=== PATIENT | male | born 1980 | race American Indian/Alaskan Native ===

== ENCOUNTER 2020-10-27 01:56 | Observation (INO) | payer OTHER ==
[2020-10-27] MEDS ORDERED: ASPIRIN 81 MG TAB CHEW PO ONE (02:10)
[2020-10-27] MEDS ORDERED: KETOROLAC 30 MG/1 ML INJ IV ONE (02:11)
[2020-10-27] MEDS ORDERED: methylPREDNISolone Sod Succinate 125 MG/2 ML INJ IV ONE (02:12)
--- NOTE | 2020-10-27 02:13 | Emergency Department Report ---
ED Chest Pain HPI - General Chief Complaint: Chest Pain Stated Complaint: SIVA PUI?: Yes Time Seen by Provider: 10/27/20 02:07 Source: patient Mode of arrival: Ambulatory Limitations: No Limitations - History of Present Illness MD Complaint: chest pain -: Sudden, days(s) Onset: during rest Pain Location: left chest, right chest Pain Radiation: none Severity: severe Severity scale (0 -10): 10 Quality: sharp Consistency: constant Improves With: rest Worsens With: inspiration, palpation, movement re: dyspnea. denies: nausea, vomting, diaphoresis Other Symptoms: fever. denies: cough, syncope, rash, acid taste in mouth, leg swelling, palpitations, burping Treatments Prior to Arrival: none Aspirin use within the Past 7 Days: (0) No - Related Data On Oral Contraceptives: No ED Review of Systems ROS: Stated complaint: SIVA Other details as noted in HPI Critical care attestation.: If time is entered above; I have spent that time in minutes in the direct care of this critically ill patient, excluding procedure time. ED Disposition Condition: Stable
--- NOTE | 2020-10-27 02:27 | Emergency Department Report ---
ED Shortness of Breath HPI - General Chief Complaint: Chest Pain Stated Complaint: SIVA Time Seen by Provider: 10/27/20 02:07 Source: EMS Mode of arrival: Stretcher Limitations: No Limitations - History of Present Illness Initial Comments: Patient is a 40-year-old male who presents with EMS for shortness of breath. Patient states that he was outside with some friends and had some alcohol and began having shortness of breath. He states he has asthma. Patient friends called EMS. EMS brought patient to hospital. Report received from EMS. EMS states the patient was short of breath and hypoxic and they gave him albuterol, Solu-Medrol and mag. Patient sats improved. Patient answering some questions. Patient states he is feeling better. Patient is lethargic but arousable. Patient states his shortness of breath was severe. Patient states that is improved with medications. Patient states that he had a seizure. Patient dates he has a history of seizures. Patient states he is not taking any medications. Patient states that after his asthma attack started he then had a seizure. Patient states that he woke up to EMS. Patient states he might of had a possible exposure to COVID-19. Complaint: shortness of breath -: Sudden Severity: severe Consistency: other (Improving) Improves With: rest, bronchodilators Worsens With: exertion Known History Of: asthma Associated Symptoms: denies other symptoms Treatments Prior to Arrival: oxygen, bronchodilator, other - Related Data Home Oxygen Therapy: No Allergies Allergy/AdvReac Type Severity Reaction Status Date / Time No Known Allergies Allergy Unverified 10/27/20 02:55 ED Review of Systems ROS: Stated complaint: SIVA Other details as noted in HPI Constitutional: denies: chills, fever Eyes: denies: eye pain, eye discharge, vision change ENT: denies: ear pain, throat pain Respiratory: shortness of breath, wheezing. denies: cough Cardiovascular: denies: chest pain, palpitations Endocrine: no symptoms reported Gastrointestinal: denies: abdominal pain, nausea, diarrhea Genitourinary: denies: urgency, dysuria Musculoskeletal: denies: back pain, joint swelling, arthralgia Skin: denies: rash, lesions Neurological: denies: headache, weakness, paresthesias Psychiatric: denies: anxiety, depression Hematological/Lymphatic: denies: easy bleeding, easy bruising ED Past Medical Hx - Past Medical History Previous Medical History?: Yes Hx Asthma: Yes - Surgical History Past Surgical History?: No - Family History Family history: no significant - Social History Smoking Status: Unknown if ever smoked Substance Use Type: Alcohol ED Physical Exam - General Limitations: No Limitations General appearance: in no apparent distress, lethargic - Head Head exam: Present: atraumatic, normocephalic - Eye Eye exam: Present: normal appearance, PERRL Pupils: Present: normal accommodation - ENT ENT exam: Present: mucous membranes moist - Neck Neck exam: Present: normal inspection - Respiratory Respiratory exam: Present: normal lung sounds bilaterally. Absent: respiratory distress - Cardiovascular Cardiovascular Exam: Present: regular rate, normal rhythm. Absent: systolic murmur, diastolic murmur, rubs, gallop - GI/Abdominal GI/Abdominal exam: Present: soft, normal bowel sounds - Rectal Rectal exam: Present: deferred - Extremities Exam Extremities exam: Present: normal inspection - Back Exam Back exam: Present: normal inspection - Neurological Exam Neurological exam: Present: alert, oriented X3 - Psychiatric Psychiatric exam: Present: normal affect, normal mood - Skin Skin exam: Present: warm, dry, intact, normal color. Absent: rash ED Course Vital Signs 10/27/20 10/27/20 10/27/20 02:04 02:09 02:15 Pulse Rate 60 63 Respiratory 12 10 L Rate Blood Pressure 93/61 118/89 O2 Sat by Pulse 96 95 99 Oximetry 10/27/20 02:56 Pulse Rate Respiratory 16 Rate Blood Pressure O2 Sat by Pulse Oximetry - Reevaluation(s) Reevaluation #1: Patient oxygen is decreasing. Patient was placed on oxygen. 10/27/20 02:45 Reevaluation #2: Patient removed from oxygen patient continues to desat. Patient well-developed breathing treatments and admitted to the hospital service. Patient placed back on oxygen. Patient answering more questions. I discussed all results with patient. I discussed plan of care with patient. Patient agrees with plan of care and admission. Patient to be admitted to the hospitalist service. 10/27/20 04:45 ED Medical Decision Making - Lab Data Result diagrams: 10/27/20 02:44 10/27/20 02:39 - EKG Data -: EKG Interpreted by Me EKG shows normal: sinus rhythm, axis, intervals, QRS complexes, ST-T waves - Radiology Data Radiology results: report reviewed, image reviewed interpreted by me: Chest x-ray: No pneumonia, no pneumothorax, no foreign body, no osseous findings, no acute findings - Medical Decision Making Patient is a 40-year-old male presents emergency room with complaints of shortness of breath and seizure activity. Patient has history of seizures and has had a seizure for a long time. Patient was brought in by EMS. EMS found patient to be hypoxic and wheezing. Patient was given Solu-Medrol, albuterol and magnesium. Patient was found to be hypoxic in ER and placed on oxygen. Patient continued to require oxygen support. Patient's lethargy improved this time around the ER. Patient given Keppra for his seizure activity. Patient chest x-ray was negative for acute finding. Patient had labs which were essentially unremarkable. Patient admitted to the hospital service for further evaluation treatment. Due to Covid exposure, the patient will have a Covid panel done and infectious disease will be consulted. The hospital service for follow-up on the Covid labs. - Differential Diagnosis Status asthmaticus, seizure, hypoxia, SoB, Critical Care Time: Yes Critical care time in (mins) excluding proc time.: 35 Critical care attestation.: If time is entered above; I have spent that time in minutes in the direct care of this critically ill patient, excluding procedure time. Critical Care Time: 35 minutes ED Disposition Clinical Impression: Seizure, SOB (shortness of breath), Exposure to COVID-19 virus Status asthmaticus Qualifiers: Asthma severity: unspecified severity Asthma persistence: unspecified Qualified Code(s): J45.902 - Unspecified asthma with status asthmaticus Respiratory failure Qualifiers: Chronicity: acute Respiratory failure complication: hypoxia Qualified Code(s): J96.01 - Acute respiratory failure with hypoxia Disposition: OP ADMIT IP TO THIS HOSP Is pt being admited?: Yes Does the pt Need Aspirin: No Condition: Critical Time of Disposition: 04:48
[2020-10-27 02:54] LABS: Basophils % (Auto) 0.4 % (0.0-1.8); Eosinophils # (Auto) 0.5 K/mm3 (0.0-0.4); Eosinophils % (Auto) 5.2 % (0.0-4.3); Hematocrit 42.1 % (35.5-45.6); Hemoglobin 13.9 gm/dl (11.8-15.2); Lymphocytes # (Auto) 2.7 K/mm3 (1.2-5.4); Lymphocytes % (Auto) 26.8 % (13.4-35.0); Mean Corpuscular HGB Conc 33 % (32-34); Mean Corpuscular Volume 91 fl (84-94); Monocytes # (Auto) 0.6 K/mm3 (0.0-0.8); Monocytes % (Auto) 6.6 % (0.0-7.3); Platelet Count 290 K/mm3 (140-440); Red Blood Count 4.64 M/mm3 (3.65-5.03); Red Cell Distribution Width 14.6 % (13.2-15.2)
--- NOTE | 2020-10-27 02:59 | XRay Report ---
CHEST 1 VIEW 10/27/2020 1:47 AM INDICATION / CLINICAL INFORMATION: Chest Pain. COMPARISON: 08/04/20 FINDINGS: SUPPORT DEVICES: None. HEART / MEDIASTINUM: No significant abnormality. LUNGS / PLEURA: No significant pulmonary or pleural abnormality. No pneumothorax. ADDITIONAL FINDINGS: No significant additional findings. IMPRESSION: 1. No acute findings. Signer Name: Júnior Ndiaye MD Signed: 10/27/2020 2:55 AM Workstation Name: [id number]
[2020-10-27 03:16] LABS: Alanine Aminotransferase 9 units/L (7-56); BUN/Creatinine Ratio 13; Blood Urea Nitrogen 13 mg/dL (9-20); Calcium 8.7 mg/dL (8.4-10.2); Hemolysis Index 4
[2020-10-27] MEDS ORDERED: levETIRAcetam 1000 MG/NS 0.75% 1,000 MG/100 ML BAG IV ONE (04:47)
[2020-10-27] MEDS ORDERED: IPRATROPIUM/ALBUTEROL SULFATE 3 ML AMPUL.NEB IH ONE (04:51)
[2020-10-27 05:03] LABS: Amphetamine Screen,Urine PRESUMPTIVE NEGATIVE; Benzodiazepines Screen,Urine PRESUMPTIVE NEGATIVE; Cannabinoid Screen,Urine PRESUMPTIVE NEGATIVE; Cocaine Screen,Urine PRESUMPTIVE POSITIVE; Methadone Screen,Urine PRESUMPTIVE NEGATIVE; Opiate Screen,Urine PRESUMPTIVE NEGATIVE
[2020-10-27 05:17] LABS: Bilirubin,Urine NEG (Negative); Blood,Urine NEG (Negative); Color,Urine Yellow (Yellow); Hyaline Casts,Urine 1 /LPF; Mucus,Urine FEW /HPF; Protein,Urine <15 mg/dL mg/dL (Negative); RBC,Urine < 1.0 /HPF (0.0-6.0); Urobilinogen,Urine < 2.0 mg/dL (<2.0)
--- NOTE | 2020-10-27 05:41 | History and Physical Report ---
History of Present Illness Date of examination: 10/27/20 Date of admission: 10/27/20 04:52 Chief complaint: Shortness of breath Seizure History of present illness: 40-year-old male with history of seizure and asthma was brought to the emergency room for shortness of breath and seizure. Patient was outside with some friends and had some alcohol and began having shortness of breath. EMS brought patient to hospital. EMS states the patient was short of breath and hypoxic and they gave him albuterol, Solu-Medrol and mag. Patient sats improved. Patient answering some questions. Patient states he is feeling better. Patient is lethargic but arousable. Patient states his shortness of breath was severe. Patient states that is improved with medications. Patient states that he had a seizure. Patient dates he has a history of seizures. Patient states he is not taking any medications. Patient states that after his asthma attack started he then had a seizure. Patient states that he woke up to EMS. Patient states he might of had a possible exposure to COVID-19. Past History Past Medical History: COPD, seizures Medications and Allergies Allergies Allergy/AdvReac Type Severity Reaction Status Date / Time No Known Allergies Allergy Unverified 10/27/20 02:55 Active Meds: Active Medications Albuterol/Ipratropium (Ipratropium/Albuterol Sulfate 3 Ml Ampul.Neb) 1 ampul IH Q6HRT TYRONE Azithromycin (Azithromycin 250 Mg Tab) 250 mg PO QDAY TYRONE; Protocol Ceftriaxone Sodium (Rocephin/Ns 1 Gm/50 Ml) 1 gm in 50 mls @ 100 mls/hr IV Q24H TYRONE; Protocol Levetiracetam 500 mg/ Dextrose 105 mls @ 400 mls/hr IV Q12HR [facility] Methylprednisolone Sodium Succinate (Methylprednisolone Sod Succinate 40 Mg/1 Ml Inj) 40 mg IV Q6HR TYRONE Montelukast Sodium (Montelukast 10 Mg Tab) 10 mg PO QHS [facility] Review of Systems Respiratory: dyspnea on exertion Neurological: seizures Exam - Constitutional Vitals: Temp Pulse Resp BP Pulse Ox 63 16 118/89 99 10/27/20 02:15 10/27/20 02:56 10/27/20 02:15 10/27/20 02:15 General appearance: Present: mild distress, well-nourished. Absent: no acute distress - EENT Eyes: Present: PERRL ENT: hearing intact, clear oral mucosa - Neck Neck: Present: supple, normal ROM - Respiratory Respiratory effort: normal Respiratory: bilateral: CTA - Cardiovascular Heart Sounds: Present: S1 & S2. Absent: rub, click - Extremities Extremities: pulses symmetrical, No edema Peripheral Pulses: within normal limits - Abdominal General gastrointestinal: Present: soft, non-tender, non-distended, normal bowel sounds Male genitourinary: Present: normal - Integumentary Integumentary: Present: clear, warm, dry - Musculoskeletal Musculoskeletal: gait normal, strength equal bilaterally - Psychiatric Psychiatric: appropriate mood/affect, intact judgment & insight - Neurologic Neurologic: CNII-XII intact, moves all extremities Results - Labs CBC & Chem 7: 10/27/20 02:44 10/27/20 02:39 Labs: Laboratory Last Values WBC 9.9 K/mm3 (4.5-11.0) 10/27/20 02:44 RBC 4.64 M/mm3 (3.65-5.03) 10/27/20 02:44 Hgb 13.9 gm/dl (11.8-15.2) 10/27/20 02:44 Hct 42.1 % (35.5-45.6) 10/27/20 02:44 MCV 91 fl (84-94) 10/27/20 02:44 MCH 30 pg (28-32) 10/27/20 02:44 MCHC 33 % (32-34) 10/27/20 02:44 RDW 14.6 % (13.2-15.2) 10/27/20 02:44 Plt Count 290 K/mm3 (140-440) 10/27/20 02:44 Lymph % (Auto) 26.8 % (13.4-35.0) 10/27/20 02:44 [place] % (Auto) 6.6 % (0.0-7.3) 10/27/20 02:44 Eos % (Auto) 5.2 % (0.0-4.3) H 10/27/20 02:44 Baso % (Auto) 0.4 % (0.0-1.8) 10/27/20 02:44 Lymph # (Auto) 2.7 K/mm3 (1.2-5.4) 10/27/20 02:44 [place] # (Auto) 0.6 K/mm3 (0.0-0.8) 10/27/20 02:44 Eos # (Auto) 0.5 K/mm3 (0.0-0.4) H 10/27/20 02:44 Baso # (Auto) 0.0 K/mm3 (0.0-0.1) 10/27/20 02:44 Seg Neutrophils % 61.0 % (40.0-70.0) 10/27/20 02:44 Seg Neutrophils # 6.0 K/mm3 (1.8-7.7) 10/27/20 02:44 Sodium 139 mmol/L (137-145) 10/27/20 02:39 Potassium 4.0 mmol/L (3.6-5.0) 10/27/20 02:39 Chloride 101.9 mmol/L (98-107) 10/27/20 02:39 Carbon Dioxide 31 mmol/L (22-30) H 10/27/20 02:39 Anion Gap 10 mmol/L 10/27/20 02:39 BUN 13 mg/dL (9-20) 10/27/20 02:39 Creatinine 1.0 mg/dL (0.8-1.3) 10/27/20 02:39 Estimated GFR > 60 ml/min 10/27/20 02:39 BUN/Creatinine Ratio 13 % 10/27/20 02:39 Glucose 113 mg/dL (75-100) H 10/27/20 02:39 Calcium 8.7 mg/dL (8.4-10.2) 10/27/20 02:39 Total Bilirubin 0.20 mg/dL (0.1-1.2) 10/27/20 02:39 AST 15 units/L (5-40) 10/27/20 02:39 ALT 9 units/L (7-56) 10/27/20 02:39 Alkaline Phosphatase 73 units/L (35-129) 10/27/20 02:39 Total Protein 7.1 g/dL (6.3-8.2) 10/27/20 02:39 Albumin 4.0 g/dL (3.9-5) 10/27/20 02:39 Albumin/Globulin Ratio 1.3 % 10/27/20 02:39 Urine Color Yellow (Yellow) 10/27/20 04:38 Urine Turbidity Slightly-cloudy (Clear) 10/27/20 04:38 Urine pH 6.0 (5.0-7.0) 10/27/20 04:38 Ur Specific [place] 1.020 (1.003-1.030) 10/27/20 04:38 Urine Protein <15 mg/dl mg/dL (Negative) 10/27/20 04:38 Urine Glucose (UA) Neg mg/dL (Negative) 10/27/20 04:38 Urine Ketones Neg mg/dL (Negative) 10/27/20 04:38 Urine Blood Neg (Negative) 10/27/20 04:38 Urine Nitrite Neg (Negative) 10/27/20 04:38 Urine Bilirubin Neg (Negative) 10/27/20 04:38 Urine Urobilinogen < 2.0 mg/dL (<2.0) 10/27/20 04:38 Ur Leukocyte Esterase Neg (Negative) 10/27/20 04:38 Urine WBC (Auto) 2.0 /HPF (0.0-6.0) 10/27/20 04:38 Urine RBC (Auto) < 1.0 /HPF (0.0-6.0) 10/27/20 04:38 U Epithel Cells (Auto) < 1.0 /HPF (0-13.0) 10/27/20 04:38 Hyaline Casts 1 /LPF 10/27/20 04:38 Urine Mucus Few /HPF 10/27/20 04:38 Urine Opiates Screen Presumptive negative 10/27/20 04:38 Urine Methadone Screen Presumptive negative 10/27/20 04:38 Ur Barbiturates Screen Presumptive negative 10/27/20 04:38 Ur Phencyclidine Scrn Presumptive negative 10/27/20 04:38 Ur Amphetamines Screen Presumptive negative 10/27/20 04:38 U Benzodiazepines Scrn Presumptive negative 10/27/20 04:38 Urine Cocaine Screen Presumptive positive 10/27/20 04:38 U Marijuana (THC) Screen Presumptive negative 10/27/20 04:38 Drugs of Abuse Note Disclamer 10/27/20 04:38 Plasma/Serum Alcohol < 0.01 % (0-0.07) 10/27/20 02:41 - Imaging and Cardiology Chest x-ray: image reviewed Assessment and Plan - Patient Problems (1) Asthma dependent on systemic steroids with acute exacerbation Current Visit: Yes Status: Acute Plan to address problem: Admit the patient to the medical floor telemetry. Oxygen per nasal cannula 3 L/min. DuoNeb nebulizer every 4 hours as needed. Solu-Medrol 40 mg IV every 6 hours as needed. Rocephin 1 g IV daily and Zithromax 250 mg p.o. daily. We do the blood cultures sputum culture. Consult pulmonary if needed. Heparin 5000 subcu every 8 hours for DVT prophylaxis and Protonix 40 mg p.o. daily for GI pro phylaxis (2) Exposure to COVID-19 virus Current Visit: Yes Status: Acute Plan to address problem: Rocephin 1 g IV daily and Zithromax 250 mg p.o. daily. Solu-Medrol 40 mg IV every 6 hours as needed. We will consult infectious disease for further evaluation and treatment. We also sent for Covid test. (3) SOB (shortness of breath) Current Visit: Yes Status: Acute Plan to address problem: Oxygen per nasal cannula 3 L/min. DuoNeb nebulizer every 4 hours as needed. Solu-Medrol 40 mg IV every 6 hours as needed. Rocephin 1 g IV daily and Zithromax 250 mg p.o. daily. We do the blood cultures sputum culture. Consult pulmonary if needed. (4) Seizure Current Visit: Yes Status: Acute Plan to address problem: Keppra 500 mg IV every 12 hours. We will order EEG. Patient is on seizure precaution. Will consult neurology if needed
[2020-10-27 05:46] LABS: C-Reactive Protein 0.3 mg/dL (0.00-1.30)
[2020-10-27] MEDS ORDERED: cefTRIAXone/NS 1 GM/50 ML 1 GM/50 ML BAG IV SCH (06:00)
[2020-10-27] MEDS ORDERED: HEPARIN 5,000 UNIT/1 ML VIAL SUB-Q SCH (06:00)
[2020-10-27] MEDS ORDERED: PANTOPRAZOLE 40 MG TAB PO SCH (07:30)
[2020-10-27] MEDS: IPRATROPIUM/ALBUTEROL SULFATE 3 ML AMPUL.NEB IH SCH ×3 (07:46→20:00)
[2020-10-27] MEDS ORDERED: SODIUM CHLORIDE 0.9% 1000 ML 1,000 ML IV SCH (08:30)
[2020-10-27] MEDS ORDERED: AZITHROMYCIN 250 MG TAB PO SCH (10:00)
--- NOTE | 2020-10-27 10:22 | Cat Scan Report ---
CT HEAD WITHOUT CONTRAST INDICATION / CLINICAL INFORMATION: Seizure, headache. TECHNIQUE: Axial imaging performed from the skull apex through the skull base without the use of cont rast. Sagittal and coronal reformatted images. All CT scans at this location are performed using CT dose reduction for ALARA by means of automated exposure control. COMPARISON: 11/10/2019 FINDINGS: CEREBRAL PARENCHYMA: No significant abnormality. No acute territorial infarct. HEMORRHAGE: None. EXTRA-AXIAL SPACES: Normal in size and morphology for the patient's age. VENTRICULAR SYSTEM: Normal in size and morphology for the patient's age. MIDLINE SHIFT OR HERNIATION: None. CEREBELLUM / BRAINSTEM: No significant abnormality. CALVARIUM: No significant abnormality. ORBITS: Normal as visualized. PARANASAL SINUSES / MASTOID AIR CELLS: Mild mucosal thickening is noted in the ethmoid and maxillary sinuses. SOFT TISSUES of HEAD: No significant abnormality. ADDITIONAL FINDINGS: None. IMPRESSION: No acute process or significant change since 11/10/2019. Signer Name: Prieto Shipley Jr, MD Signed: 10/27/2020 10:18 AM Workstation Name: [id number]
--- NOTE | 2020-10-27 11:54 | Consultation ---
History of Present Illness Consult date: 10/27/20 Reason for Consult: seizure Chief complaint: seizure History of present illness: 40 yo male with an episode of shorntess of breath w/ possible seizure event, s/p shortness of breath. H&P notes that the patient stated possible coid-19 exposure. Past History Past Medical History: COPD, seizures Medications and Allergies Allergies Allergy/AdvReac Type Severity Reaction Status Date / Time No Known Allergies Allergy Verified 10/27/20 05:38 Active Meds: Active Medications Albuterol/Ipratropium (Ipratropium/Albuterol Sulfate 3 Ml Ampul.Neb) 1 ampul IH Q6HRT TYRONE Last Admin: 10/27/20 07:46 Dose: 1 ampul Documented by: Azithromycin (Azithromycin 250 Mg Tab) 250 mg PO QDAY TYRONE; Protocol Heparin Sodium (Porcine) (Heparin 5,000 Unit/1 Ml Vial) 5,000 unit SUB-Q Q8HR TYRONE Ceftriaxone Sodium (Rocephin/Ns 1 Gm/50 Ml) 1 gm in 50 mls @ 100 mls/hr IV Q24H TYRONE; Protocol Levetiracetam 500 mg/ Dextrose 105 mls @ 400 mls/hr IV Q12H TYRONE Sodium Chloride (Nacl 0.9% 1000 Ml) 1,000 mls @ 100 mls/hr IV DIRECT TYRONE Methylprednisolone Sodium Succinate (Methylprednisolone Sod Succinate 40 Mg/1 Ml Inj) 40 mg IV Q6HR TYRONE Montelukast Sodium (Montelukast 10 Mg Tab) 10 mg PO QHS TYRONE Pantoprazole Sodium (Pantoprazole 40 Mg Tab) 40 mg PO QDAC TYRONE Physical Examination - Vital Signs Vital Signs: Vital Signs Pulse Resp BP Pulse Ox 60 12 93/61 96 10/27/20 02:04 10/27/20 02:04 10/27/20 02:04 10/27/20 02:04 - Physical Exam Narrative exam: Patient not seen due to covid-19 protocol. Results - Laboratory Findings CBC and BMP: 10/27/20 02:44 10/27/20 05:00 Abnormal Lab Findings: Abnormal Labs 10/27/20 10/27/20 10/27/20 02:39 02:44 05:00 Eos % (Auto) 5.2 H Eos # (Auto) 0.5 H Carbon Dioxide 31 H Glucose 113 H 107 H Assessment and Plan 40 yo male with possible seizure event s/p copd exacerbation w/ possible covid- 19 exposure. 1. Seizure d/o - awaiting EEG report; mri izzy w/ wo contrast; correction of underlying infecitous/inflammatory etiologies. 2. COPD Exacerbation - per primary team. Dave Bah MD Neurology
--- NOTE | 2020-10-27 12:29 | Consultation ---
History of Present Illness - Reason for Consult Consult date: 10/27/20 COVID PUi Requesting physician: ARIELLA KEMP III - History of Present Illness The patient is a 39-year-old male with history of COPD, seizures was admitted to the hospital with shortness of breath and seizure. Afebrile. Was placed on oxygen, saturating 99% on 2 L. Chest x-ray did not reveal any pneumonia. Procalcitonin 0.05, D-dimer 149, normal WBC Review of Systems: reviewed in the chart, unable to obtain, minimize risk of transmission Past History Past Medical History: COPD, seizures Medications and Allergies Allergies Allergy/AdvReac Type Severity Reaction Status Date / Time No Known Allergies Allergy Verified 10/27/20 05:38 Active Meds: Active Medications Albuterol/Ipratropium (Ipratropium/Albuterol Sulfate 3 Ml Ampul.Neb) 1 ampul IH Q6HRT TYRONE Last Admin: 10/27/20 07:46 Dose: 1 ampul Documented by: Azithromycin (Azithromycin 250 Mg Tab) 250 mg PO QDAY TYRONE; Protocol Heparin Sodium (Porcine) (Heparin 5,000 Unit/1 Ml Vial) 5,000 unit SUB-Q Q8HR TYRONE Ceftriaxone Sodium (Rocephin/Ns 1 Gm/50 Ml) 1 gm in 50 mls @ 100 mls/hr IV Q24H TYRONE; Protocol Levetiracetam 500 mg/ Dextrose 105 mls @ 400 mls/hr IV Q12H TYRONE Sodium Chloride (Nacl 0.9% 1000 Ml) 1,000 mls @ 100 mls/hr IV DIRECT TYRONE Methylprednisolone Sodium Succinate (Methylprednisolone Sod Succinate 40 Mg/1 Ml Inj) 40 mg IV Q6HR TYRONE Montelukast Sodium (Montelukast 10 Mg Tab) 10 mg PO QHS TYRONE Pantoprazole Sodium (Pantoprazole 40 Mg Tab) 40 mg PO QDAC TYRONE Physical Examination - Physical Exam Narrative exam: Physical Exam (reviewed in chart to minimize risk of transmission) Constitutional: deferred Head, Ears, Nose: deferred Eyes: deferred Neck: deferred Oral: deferred Cardiovascular: deferred Respiratory: deferred GI: deferred Musculoskeletal: deferred Skin: deferred Hem/Lymphatic: deferred Psych: deferred Neurological: deferred - Constitutional Vitals: Vital Signs Temp Pulse Resp BP Pulse Ox 97.2 F L 59 L 18 91/36 99 10/27/20 07:09 10/27/20 07:51 10/27/20 07:51 10/27/20 07:09 10/27/20 07:09 Temperature -Last 24 Hours Temperature 97.2 F Results - Labs CBC & Chem 7: 10/27/20 02:44 10/27/20 05:00 Labs: Abnormal lab results 10/27/20 10/27/20 10/27/20 Range/Units 02:39 02:44 05:00 Eos % (Auto) 5.2 H (0.0-4.3) % Eos # (Auto) 0.5 H (0.0-0.4) K/mm3 Carbon Dioxide 31 H (22-30) mmol/L Glucose 113 H 107 H (75-100) mg/dL - Imaging and Cardiology Chest x-ray: report reviewed, image reviewed (no pna) Assessment and Plan Cultures: SARS CoV2 PCR: Pending A/P: 39-year-old male with history of COPD, seizures was admitted to the hospital with shortness of breath and seizure: #Asthma/COPD exacerbation #Seizure disorder Recs: Procalcitonin is low, antibiotics discontinued Follow-up COVID-19 PCR, low suspicion Varun Martinez MD, FACP [facility] O: [phone] F: [phone]
[2020-10-27] MEDS: methylPREDNISolone Sod Succinate 40 MG/1 ML INJ IV SCH ×2 (12:43→19:36)
--- NOTE | 2020-10-27 16:01 | Progress Note ---
Assessment and Plan Assessment and plan: --Acute asthma exacerbation Current Visit: Yes Status: Acute Plan to address problem: Oxygen titrate O2 sats more than 90% Nebulizers, IV steroids, IV antibiotics, inhalation steroids Supportive care, pulmonary if needed --PUI exposure to COVID-19 virus Current Visit: Yes Status: Acute Plan to address problem: Hickey PCR sent, isolation precautions ER physician already consulted ID Follow ID evaluation recommendations --History of seizure disorder ; Current Visit: Yes Status: Acute Plan to address problem: Seizure precautions, do not drive, follow EEG Antiepileptic medications, do not drive until cleared by the PMD Neurology consult, will check CT head without contrast, MRI with and without contrast Supportive care, neurology following --DVT prophylaxis Current Visit: Yes Status: Acute Plan to address problem: Lovenox subcu \We will closely monitor patient and adjust management as needed Plan of care reviewed with the patient and her nurse Follow EEG and MRI reports Follow hickey PCR test Advance care 35 minutes History Interval history: Seen and examined the patient at the bedside Patient's chart and medications reviewed Patient was admitted with seizure episodes, PUI high suspicion for COVID-19 Admitted in isolation No new episodes of seizures since admission Vital signs reviewed Hospitalist Physical - Constitutional Vitals: Temp Pulse Resp BP Pulse Ox 97.8 F 75 18 102/58 97 10/27/20 12:24 10/27/20 14:35 10/27/20 14:35 10/27/20 12:24 10/27/20 12:24 General appearance: Present: mild distress, well-nourished, other (Lethargic this morning/probably postictal versus medications). Absent: no acute distress - EENT Eyes: Present: PERRL, EOM intact - Neck Neck: Present: supple, normal ROM - Respiratory Respiratory effort: normal Respiratory: bilateral: diminished, rhonchi, wheezing, negative: rales - Cardiovascular Rhythm: regular Heart Sounds: Present: S1 & S2 - Extremities Extremities: no ischemia, No edema - Abdominal General gastrointestinal: soft, non-tender, non-distended, normal bowel sounds - Integumentary Integumentary: Present: clear, warm - Psychiatric Psychiatric: appropriate mood/affect, cooperative - Neurologic Neurologic: CNII-XII intact, moves all extremities Results - Labs CBC & Chem 7: 10/27/20 02:44 10/27/20 05:00 Labs: Laboratory Last Values WBC 9.9 K/mm3 (4.5-11.0) 10/27/20 02:44 RBC 4.64 M/mm3 (3.65-5.03) 10/27/20 02:44 Hgb 13.9 gm/dl (11.8-15.2) 10/27/20 02:44 Hct 42.1 % (35.5-45.6) 10/27/20 02:44 MCV 91 fl (84-94) 10/27/20 02:44 MCH 30 pg (28-32) 10/27/20 02:44 MCHC 33 % (32-34) 10/27/20 02:44 RDW 14.6 % (13.2-15.2) 10/27/20 02:44 Plt Count 290 K/mm3 (140-440) 10/27/20 02:44 Lymph % (Auto) 26.8 % (13.4-35.0) 10/27/20 02:44 [place] % (Auto) 6.6 % (0.0-7.3) 10/27/20 02:44 Eos % (Auto) 5.2 % (0.0-4.3) H 10/27/20 02:44 Baso % (Auto) 0.4 % (0.0-1.8) 10/27/20 02:44 Lymph # (Auto) 2.7 K/mm3 (1.2-5.4) 10/27/20 02:44 [place] # (Auto) 0.6 K/mm3 (0.0-0.8) 10/27/20 02:44 Eos # (Auto) 0.5 K/mm3 (0.0-0.4) H 10/27/20 02:44 Baso # (Auto) 0.0 K/mm3 (0.0-0.1) 10/27/20 02:44 Seg Neutrophils % 61.0 % (40.0-70.0) 10/27/20 02:44 Seg Neutrophils # 6.0 K/mm3 (1.8-7.7) 10/27/20 02:44 D-Dimer 149.89 ng/mlDDU (0-234) 10/27/20 05:00 Sodium 139 mmol/L (137-145) 10/27/20 02:39 Potassium 4.0 mmol/L (3.6-5.0) 10/27/20 02:39 Chloride 101.9 mmol/L (98-107) 10/27/20 02:39 Carbon Dioxide 31 mmol/L (22-30) H 10/27/20 02:39 Anion Gap 10 mmol/L 10/27/20 02:39 BUN 13 mg/dL (9-20) 10/27/20 02:39 Creatinine 1.0 mg/dL (0.8-1.3) 10/27/20 02:39 Estimated GFR > 60 ml/min 10/27/20 02:39 BUN/Creatinine Ratio 13 % 10/27/20 02:39 Glucose 107 mg/dL (75-100) H 10/27/20 05:00 Calcium 8.7 mg/dL (8.4-10.2) 10/27/20 02:39 Ferritin 71.3 ng/mL (30.0-300.0) 10/27/20 05:00 Total Bilirubin 0.20 mg/dL (0.1-1.2) 10/27/20 02:39 AST 15 units/L (5-40) 10/27/20 02:39 ALT 9 units/L (7-56) 10/27/20 02:39 Alkaline Phosphatase 73 units/L (35-129) 10/27/20 02:39 Lactate Dehydrogenase 160 units/L (91-180) 10/27/20 05:00 C-Reactive Protein 0.30 mg/dL (0.00-1.30) 10/27/20 05:00 Total Protein 7.1 g/dL (6.3-8.2) 10/27/20 02:39 Albumin 4.0 g/dL (3.9-5) 10/27/20 02:39 Albumin/Globulin Ratio 1.3 % 10/27/20 02:39 Procalcitonin < 0.05 ng/mL (<0.15) 10/27/20 05:00 Urine Color Yellow (Yellow) 10/27/20 04:38 Urine Turbidity Slightly-cloudy (Clear) 10/27/20 04:38 Urine pH 6.0 (5.0-7.0) 10/27/20 04:38 Ur Specific [place] 1.020 (1.003-1.030) 10/27/20 04:38 Urine Protein <15 mg/dl mg/dL (Negative) 10/27/20 04:38 Urine Glucose (UA) Neg mg/dL (Negative) 10/27/20 04:38 Urine Ketones Neg mg/dL (Negative) 10/27/20 04:38 Urine Blood Neg (Negative) 10/27/20 04:38 Urine Nitrite Neg (Negative) 10/27/20 04:38 Urine Bilirubin Neg (Negative) 10/27/20 04:38 Urine Urobilinogen < 2.0 mg/dL (<2.0) 10/27/20 04:38 Ur Leukocyte Esterase Neg (Negative) 10/27/20 04:38 Urine WBC (Auto) 2.0 /HPF (0.0-6.0) 10/27/20 04:38 Urine RBC (Auto) < 1.0 /HPF (0.0-6.0) 10/27/20 04:38 U Epithel Cells (Auto) < 1.0 /HPF (0-13.0) 10/27/20 04:38 Hyaline Casts 1 /LPF 10/27/20 04:38 Urine Mucus Few /HPF 10/27/20 04:38 Urine Opiates Screen Presumptive negative 10/27/20 04:38 Urine Methadone Screen Presumptive negative 10/27/20 04:38 Ur Barbiturates Screen Presumptive negative 10/27/20 04:38 Ur Phencyclidine Scrn Presumptive negative 10/27/20 04:38 Ur Amphetamines Screen Presumptive negative 10/27/20 04:38 U Benzodiazepines Scrn Presumptive negative 10/27/20 04:38 Urine Cocaine Screen Presumptive positive 10/27/20 04:38 U Marijuana (THC) Screen Presumptive negative 10/27/20 04:38 Drugs of Abuse Note Disclamer 10/27/20 04:38 Plasma/Serum Alcohol < 0.01 % (0-0.07) 10/27/20 02:41 Coronavirus (PCR) Negative (Negative) 10/27/20 Unknown Joseph/IV: Voiding Method Toilet Active Medications - Current Medications Current Medications: Generic Name Dose Route Start Last Admin Trade Name Freq PRN Reason Stop Dose Admin Albuterol/Ipratropium 1 ampul 10/27/20 08:00 10/27/20 14:33 Ipratropium/Albuterol Sulfate 3 Ml Ampul.Neb IH 1 ampul Q6HRT TYRONE Administration Heparin Sodium (Porcine) 5,000 unit 10/27/20 06:00 Heparin 5,000 Unit/1 Ml Vial SUB-Q Q8HR [facility] Levetiracetam 500 mg/ Dextrose 105 mls @ 400 mls/hr 10/27/20 18:00 IV Q12H TYRONE Sodium Chloride 1,000 mls @ 100 mls/hr 10/27/20 08:30 Nacl 0.9% 1000 Ml IV DIRECT TYRONE Methylprednisolone Sodium Succinate 40 mg 10/27/20 06:00 10/27/20 12:43 Methylprednisolone Sod Succinate 40 Mg/1 Ml Inj IV 40 mg Q6HR TYRONE Administration Montelukast Sodium 10 mg 10/27/20 22:00 Montelukast 10 Mg Tab PO QHS [facility] Pantoprazole Sodium 40 mg 10/27/20 07:30 10/27/20 12:42 Pantoprazole 40 Mg Tab PO 40 mg QDAC TYRONE Administration
[2020-10-27 17:19] VITALS: BP 94/50
--- NOTE | 2020-10-27 17:34 | Magnetic Resonance Report ---
MR brain wo/w con INDICATION / CLINICAL INFORMATION: 40 years Male; Seizures/ rec by neurologist Dr. Olvin Acosta. TECHNIQUE: Multiplanar, multisequence MR images of the brain were obtained. COMPARISON: None available. FINDINGS: BRAIN / INTRACRANIAL CONTENTS: No acute hemorrhage, mass effect, midline shift, hydrocephalus, or acu te, large territorial infarct. No chronic infarct or atrophy. No significant white matter abnormality . Hippocampal regions are grossly normal. CRANIOCERVICAL JUNCTION: No significant abnormality. VASCULAR FLOW-VOIDS: No significant abnormality. ORBITS: No significant abnormality of visualized orbits. SINUSES / MASTOIDS: Moderate mucosal thickening seen in the ethmoids. Desiccated secretions seen in t he right sphenoid sinus. Mild mucosal thickening seen in the maxillary antra and right frontal sinus. ADDITIONAL FINDINGS: Very small Tornwaldt cyst noted, which is of no clinical significance. IMPRESSION: 1. No focal mass, hemorrhage, hydrocephalus, or acute ischemia. Signer Name: Kevin Tomas MD, III Signed: 10/27/2020 5:30 PM Workstation Name: [id number]
[2020-10-27] MEDS ORDERED: levETIRAcetam 500 MG in DEXTROSE 5% IN WATER 100 ML IV SCH (18:00)
--- NOTE | 2020-10-27 20:48 | Discharge Summary ---
Providers - Providers Date of Admission: 10/27/20 04:52 Date of discharge: 10/27/20 Attending physician: YEIMY ROBERTSON 10/27/20 05:03 Consult to Physician [CONS] Routine Comment: Consulting Provider: JENI CHRIS Physician Instructions: Reason For Exam: pui 10/27/20 08:26 Consult to Physician [CONS] Routine Comment: Consulting Provider: DAMARIS PACKER Physician Instructions: Reason For Exam: Seizures 10/27/20 15:54 Physical Therapy Evaluation and Treat [CONS] Routine Comment: Reason For Exam: History of seizures/evaluate and treat/DC needs Primary care physician: [employer] Hospitalization Condition: Fair Disposition: DC-07 LEFT AGAINST MED ADVICE Time spent for discharge: 32 min Exam - Constitutional Vitals: Temp Pulse Resp BP Pulse Ox 98.9 F 67 16 94/50 98 10/27/20 16:08 10/27/20 16:08 10/27/20 16:08 10/27/20 16:08 10/27/20 20:02 Plan Follow up with: PRIMARY MD DAVIDSON [Primary Care Provider] - 3-5 Days
[2020-10-27] MEDS ORDERED: MONTELUKAST 10 MG TAB PO SCH (22:00)
== END 2020-10-27 20:20 | disposition left against medical advice (07) ==
LOC: ED 01:56 → 3A 04:52
PROVIDERS: ADMIT Hospitalist; ATTEND Internal Medicine
DX: J96.01 Acute respiratory failure with hypoxia (principal); Z20.822 Contact with and (suspected) exposure to COVID-19; J45.51 Severe persistent asthma with (acute) exacerbation; J45.902 Unspecified asthma with status asthmaticus; R56.9 Unspecified convulsions
CPT/HCPCS: 36415; 70450; 70553; 71045; 80053; 80307; 81001; 82728; 82947; 83615; 84145; 85025; 85379; 86140; 93005; 94640; 94760; 96365; 96375; 96376; 99291; A9575; G0378; J1953; J2920; U0003; 80320; G0480

== ENCOUNTER 2021-06-08 12:58 | Emergency (ER) | payer SELFPAY ==
[2021-06-08] MEDS ORDERED: ALBUTEROL 2.5 MG/3 ML NEBU IH ONE (13:05)
[2021-06-08] MEDS ORDERED: methylPREDNISolone Sod Succinate 125 MG/2 ML INJ IM ONE (13:05)
[2021-06-08] MEDS ORDERED: IPRATROPIUM 0.02% NEBU 2.5 ML IH ONE (13:05)
[2021-06-08] MEDS ORDERED: methylPREDNISolone Sod Succinate 125 MG/2 ML INJ IV ONE (13:12)
[2021-06-08] MEDS ORDERED: SODIUM CHLORIDE 0.9% 1000 ML 1,000 ML IV ONE (13:12)
[2021-06-08] MEDS ORDERED: MAGNESIUM SULFATE 2 GM/50 ML BAG IV ONE (13:12)
--- NOTE | 2021-06-08 13:16 | Emergency Department Report ---
HPI - General Chief Complaint: Dyspnea/Respdistress Time Seen by Provider: 06/08/21 13:04 - HPI HPI: 41-year-old -[place] male presents to the emergency department with a complaint of a 3-day history of progressively worsening shortness of breath, wheezing, mixed dry and productive cough. He has a history of asthma and has been using his home nebulizer treatment without any relief. He denies being a tobacco smoker but says that he is often around cigarette smoke. He also appears to have a history of seizures. He denies any fever, chest pain, lower extremity swelling, but does have some nausea with vomiting. No recent travel or sick contacts at home. Patient is not vaccinated against COVID-19. He presented through MSE/triage with a room air oxygen saturation of 92% and some tachypnea. He was moved back to room #6 in the main emergency department. ED Past Medical Hx - Past Medical History Hx Congestive Heart Failure: No Hx Seizures: Yes Hx Asthma: Yes - Social History Smoking Status: Never Smoker - Medications Home Medications: Home Medications Medication Instructions Recorded Confirmed Last Taken Type ALBUTEROL NEB's [Proventil 0.083% 2.5 mg IH TID PRN #1 box 06/08/21 Unknown Rx NEBS] Albuterol Mdi (or & Nicu Only) 2 puff IH QID PRN #8.5 gram 06/08/21 Unknown Rx [ProAir HFA Inhaler] Benzonatate [Tessalon Perles] 100 mg PO Q8HR PRN #20 capsule 06/08/21 Unknown Rx predniSONE [Deltasone] 20 mg PO BID #8 tab 06/08/21 Unknown Rx ED Review of Systems ROS: Stated complaint: ASTHMA Other details as noted in HPI Comment: All other systems reviewed and negative Constitutional: denies: chills, fever Eyes: denies: eye pain, vision change ENT: denies: ear pain, throat pain Respiratory: cough, shortness of breath, wheezing Cardiovascular: denies: chest pain, edema Gastrointestinal: nausea, vomiting. denies: abdominal pain Genitourinary: denies: dysuria, discharge Musculoskeletal: denies: back pain, arthralgia Skin: denies: rash, lesions Neurological: denies: headache, weakness Physical Exam - Physical Exam Vital Signs: Vital Signs 06/08/21 13:05 Pulse Rate 120 H Respiratory 28 H Rate Blood Pressure 119/74 [Right] O2 Sat by Pulse 92 Oximetry Physical Exam: GENERAL: The patient is well-developed well-nourished. HENT: Normocephalic. Atraumatic. Patient has moist mucous membranes. EYES: Extraocular motions are intact. NECK: Supple. Trachea is midline. CHEST/LUNGS: Moderate wheezing throughout the chest. There is tachypnea and conversational dyspnea. HEART/CARDIOVASCULAR: Regular. There is mild to moderate tachycardia. There is no murmur. ABDOMEN: Abdomen is soft, nontender. Patient has normal bowel sounds. There is no abdominal distention. SKIN: Skin is warm and dry. NEURO: The patient is awake, alert, and oriented. The patient is cooperative. The patient has no focal neurologic deficits. Normal speech. MUSCULOSKELETAL: There is no tenderness or deformity. There is no limitation range of motion. ED Course Vital Signs 06/08/21 13:05 Pulse Rate 120 H Respiratory 28 H Rate Blood Pressure 119/74 [Right] O2 Sat by Pulse 92 Oximetry ED Medical Decision Making - Lab Data Result diagrams: 06/08/21 13:32 06/08/21 13:32 Lab Results 06/08/21 06/08/21 06/08/21 Range/Units 13:32 13:32 13:32 WBC 8.3 (4.5-11.0) K/mm3 RBC 4.40 (3.65-5.03) M/mm3 Hgb 13.7 (11.8-15.2) gm/dl Hct 40.6 (35.5-45.6) % MCV 92 (84-94) fl MCH 31 (28-32) pg MCHC 34 (32-34) % RDW 13.4 (13.2-15.2) % Plt Count 350 (140-440) K/mm3 Lymph % (Auto) 25.5 (13.4-35.0) % [place] % (Auto) 8.8 H (0.0-7.3) % Eos % (Auto) 8.6 H (0.0-4.3) % Baso % (Auto) 0.7 (0.0-1.8) % Lymph # (Auto) 2.1 (1.2-5.4) K/mm3 [place] # (Auto) 0.7 (0.0-0.8) K/mm3 Eos # (Auto) 0.7 H (0.0-0.4) K/mm3 Baso # (Auto) 0.1 (0.0-0.1) K/mm3 Seg Neutrophils % 56.4 (40.0-70.0) % Seg Neutrophils # 4.7 (1.8-7.7) K/mm3 D-Dimer 136.10 (0-234) ng/mlDDU Sodium 141 (137-145) mmol/L Potassium 3.8 (3.6-5.0) mmol/L Chloride 103.7 (98-107) mmol/L Carbon Dioxide 25 (22-30) mmol/L Anion Gap 16 mmol/L BUN 15 (9-20) mg/dL Creatinine 0.9 (0.8-1.3) mg/dL Estimated GFR > 60 ml/min BUN/Creatinine Ratio 17 % Glucose 170 H (75-100) mg/dL Calcium 9.2 (8.4-10.2) mg/dL Total Bilirubin 0.20 (0.1-1.2) mg/dL AST 43 H (5-40) units/L ALT 18 (7-56) units/L Alkaline Phosphatase 82 (35-129) units/L Troponin T < 0.010 (0.00-0.029) ng/mL Total Protein 7.1 (6.3-8.2) g/dL Albumin 3.8 L (3.9-5) g/dL Albumin/Globulin Ratio 1.2 % - Radiology Data Radiology results: image reviewed interpreted by me: Chest x-ray does not show any acute process. There are no pleural effusions, obvious pneumonia and there is no pneumothorax. No widened mediastinum. - Medical Decision Making This patient presents to the emergency department with shortness of breath, wheezing, coughing that appears consistent with his asthma. He does have moderate bronchospasm, tachypnea, conversational dyspnea, upon presentation. The patient was moved to room #6 and placed on the monitor. He received a prolonged DuoNeb albuterol breathing treatment, Solu-Medrol and magnesium. Upon reevaluation his wheezing is down to the patient appears improved and is no longer in any respiratory distress. There is mild expiratory wheezing but no tachypnea or accessory muscle use. Chest x-ray does not show any pneumonia, pleural effusions, pneumothorax, widened mediastinum, or any other acute process. Patient's labs have been unremarkable including CBC, metabolic panel, negative troponin, and a negative D-dimer. The patient was able to ambulate around the emergency department without any oxygen desaturation or any increased work of breathing. Vital signs, prior to discharge, are reassuring. The patient will be discharged home with a prescription for an antitussive, albuterol inhaler, albuterol nebulized tr eatment, and a course of steroids. He has been instructed to follow-up with primary care and return to the emergency department with any worsening of his symptoms or with any acute distress. Critical Care Time: No Critical care attestation.: If time is entered above; I have spent that time in minutes in the direct care of this critically ill patient, excluding procedure time. ED Disposition Clinical Impression: Asthma exacerbation Qualifiers: Asthma severity: unspecified severity Asthma persistence: unspecified Qualified Code(s): J45.901 - Unspecified asthma with (acute) exacerbation Disposition: 01 HOME / SELF CARE / HOMELESS Is pt being admited?: No Condition: Stable Instructions: Asthma Attack Additional Instructions: Please follow-up with a primary care physician in the next few days. Return to the emergency department with any worsening of your symptoms, new or concerning symptoms not addressed during this current emergency department visit, or with any acute distress. Prescriptions: predniSONE [Deltasone] 20 mg PO BID #8 tab Albuterol Mdi (or & Nicu Only) [ProAir HFA Inhaler] 2 puff IH QID PRN #8.5 gram PRN Reason: Shortness Of Breath ALBUTEROL NEB's [Proventil 0.083% NEBS] 2.5 mg IH TID PRN #1 box PRN Reason: Wheezing Benzonatate [Tessalon Perles] 100 mg PO Q8HR PRN #20 capsule PRN Reason: Cough Referrals: PRIMARY CARE, [Primary Care Provider] - 2-3 Days Time of Disposition: 15:23
[2021-06-08 14:18] LABS: Basophils # (Auto) 0.1 K/mm3 (0.0-0.1); Basophils % (Auto) 0.7 % (0.0-1.8); Eosinophils # (Auto) 0.7 K/mm3 (0.0-0.4); Eosinophils % (Auto) 8.6 % (0.0-4.3); Hematocrit 40.6 % (35.5-45.6); Hemoglobin 13.7 gm/dl (11.8-15.2); Lymphocytes # (Auto) 2.1 K/mm3 (1.2-5.4); Lymphocytes % (Auto) 25.5 % (13.4-35.0); Mean Corpuscular HGB Conc 34 % (32-34); Mean Corpuscular Volume 92 fl (84-94); Monocytes # (Auto) 0.7 K/mm3 (0.0-0.8); Monocytes % (Auto) 8.8 % (0.0-7.3); Platelet Count 350 K/mm3 (140-440); Red Cell Distribution Width 13.4 % (13.2-15.2)
--- NOTE | 2021-06-08 14:30 | XRay Report ---
CHEST 1 VIEW 06/08/2021 1:12 PM INDICATION / CLINICAL INFORMATION: SOB. COMPARISON: 02/15/2021 FINDINGS: SUPPORT DEVICES: None. HEART / MEDIASTINUM: No significant abnormality. LUNGS / PLEURA: No significant pulmonary or pleural abnormality. No pneumothorax. ADDITIONAL FINDINGS: No significant additional findings. IMPRESSION: 1. No acute findings. Signer Name: Leonel Aguero MD Signed: 06/08/2021 2:25 PM Workstation Name: [id number]
[2021-06-08 14:35] LABS: Alanine Aminotransferase 18 units/L (7-56); Albumin 3.8 g/dL (3.9-5); BUN/Creatinine Ratio 17; Blood Urea Nitrogen 15 mg/dL (9-20); Calcium 9.2 mg/dL (8.4-10.2); Hemolysis Index 8
[2021-06-08 15:30] VITALS: BP 105/67
== END 2021-06-08 15:35 | disposition home or self-care (01) ==
LOC: ED 12:58
DX: J45.901 Unspecified asthma with (acute) exacerbation (principal); Z88.8 Allergy status to other drugs, medicaments and biological substances; Z79.899 Other long term (current) drug therapy
CPT/HCPCS: 36415; 71045; 80053; 84484; 85025; 85379; 94640; 96365; 96375; 99284; J2930; J3475; J7030; 94644

== ENCOUNTER 2021-06-17 07:43 | Emergency (ER) | payer SELFPAY ==
[2021-06-17] MEDS ORDERED: ALBUTEROL 2.5 MG/3 ML NEBU IH ONE (07:50)
[2021-06-17] MEDS ORDERED: IPRATROPIUM 0.02% NEBU 2.5 ML IH ONE (07:50)
[2021-06-17] MEDS ORDERED: dexAMETHasone 20 MG/5 ML VIAL IV ONE (07:50)
[2021-06-17 08:00] VITALS: BP 125/85
--- NOTE | 2021-06-17 08:45 | Emergency Department Report ---
ED Asthma HPI - General Chief Complaint: Adult Asthma Stated Complaint: SIVA/ASTHMA Time Seen by Provider: 06/17/21 07:50 Source: patient Mode of arrival: Ambulatory Limitations: No Limitations - History of Present Illness Initial Comments: This is a 41-year-old male nontoxic, well nourished in appearance, no acute signs of distress presents to the ED with c/o of acute on chronic asthma exacerbation. Patient stated she is out of her albuterol inhaler 1 month. Patient stated has some chest tightness and SOB. Patient denies any cough. Patient denies any sick contact. Patient denies any recent travels, long car, recent hospital stays. Patient denies any calf pain or calf tenderness. Patient denies any chest pain, fever, chills, nausea, vomiting, hemoptysis, numbness, tingling, headache or stiff neck. Past medical history includes asthma. MD Complaint: "asthma attack", shortness of breath, wheezing -: days(s) Severity: moderate Context: ran out of meds Associated Symptoms: none. denies: productive cough, dry cough, fever, chest pain, hemoptysis, leg edema, syncope - Related Data Current Asthma Therapy: none Previous Rx's Medication Instructions Recorded Last Taken Type ALBUTEROL NEB's [Proventil 0.083% 2.5 mg IH TID PRN #1 box 06/08/21 Unknown Rx NEBS] Albuterol Mdi (or & Nicu Only) 2 puff IH QID PRN #8.5 gram 06/08/21 Unknown Rx [ProAir HFA Inhaler] Benzonatate [Tessalon Perles] 100 mg PO Q8HR PRN #20 capsule 06/08/21 Unknown Rx predniSONE [Deltasone] 20 mg PO BID #8 tab 06/08/21 Unknown Rx Albuterol Mdi (or & Nicu Only) 2 puff IH QID PRN #8.5 gram 06/17/21 Unknown Rx [ProAir HFA Inhaler] Prednisone [predniSONE 10 mg 10 mg PO .TAPER #1 tab.ds.pk 06/17/21 Unknown Rx (6-Day Pack, 21 Tabs)] Allergies Allergy/AdvReac Type Severity Reaction Status Date / Time fluticasone Allergy Unknown Verified 06/08/21 13:07 [From Flovent Diskus] ED Review of Systems ROS: Stated complaint: SIVA/ASTHMA Other details as noted in HPI Comment: All other systems reviewed and negative Constitutional: denies: chills, fever Eyes: denies: eye pain, eye discharge, vision change ENT: denies: ear pain, throat pain Respiratory: shortness of breath, wheezing. denies: cough, orthopnea, SOB with exertion, SOB at rest, stridor Cardiovascular: denies: chest pain, palpitations, dyspnea on exertion, orthopnea, edema, syncope, paroxysmal nocturnal dyspnea Endocrine: no symptoms reported Gastrointestinal: denies: abdominal pain, nausea, diarrhea Genitourinary: denies: urgency, dysuria Musculoskeletal: denies: back pain, joint swelling, arthralgia Skin: denies: rash, lesions Neurological: denies: headache, weakness, paresthesias Psychiatric: denies: anxiety, depression Hematological/Lymphatic: denies: easy bleeding, easy bruising ED Past Medical Hx - Past Medical History Previous Medical History?: Yes Hx Congestive Heart Failure: No Hx Seizures: Yes Hx Asthma: Yes - Surgical History Past Surgical History?: No - Social History Smoking Status: Unknown if ever smoked - Medications Home Medications: Home Medications Medication Instructions Recorded Confirmed Last Taken Type ALBUTEROL NEB's [Proventil 0.083% 2.5 mg IH TID PRN #1 box 06/08/21 Unknown Rx NEBS] Albuterol Mdi (or & Nicu Only) 2 puff IH QID PRN #8.5 gram 06/08/21 Unknown Rx [ProAir HFA Inhaler] Benzonatate [Tessalon Perles] 100 mg PO Q8HR PRN #20 capsule 06/08/21 Unknown Rx predniSONE [Deltasone] 20 mg PO BID #8 tab 06/08/21 Unknown Rx Albuterol Mdi (or & Nicu Only) 2 puff IH QID PRN #8.5 gram 06/17/21 Unknown Rx [ProAir HFA Inhaler] Prednisone [predniSONE 10 mg 10 mg PO .TAPER #1 tab.ds.pk 06/17/21 Unknown Rx (6-Day Pack, 21 Tabs)] ED Physical Exam - General Limitations: No Limitations General appearance: alert, in no apparent distress - Head Head exam: Present: atraumatic, normocephalic - Eye Eye exam: Present: normal appearance - Neck Neck exam: Present: normal inspection, full ROM. Absent: tenderness, meningismus, lymphadenopathy - Respiratory Respiratory exam: Present: wheezes (Expiratory and inspiratory wheezing bilateral). Absent: respiratory distress, rales, rhonchi, stridor, chest wall tenderness, accessory muscle use, decreased breath sounds, prolonged expiratory - Cardiovascular Cardiovascular Exam: Present: regular rate, normal rhythm, normal heart sounds. Absent: bradycardia, tachycardia, irregular rhythm, systolic murmur, diastolic murmur, rubs, gallop - Extremities Exam Extremities exam: Present: full ROM - Back Exam Back exam: Present: full ROM - Neurological Exam Neurological exam: Present: alert, oriented X3, normal gait - Psychiatric Psychiatric exam: Present: normal affect, normal mood - Skin Skin exam: Present: warm, dry, intact, normal color. Absent: rash ED Course Vital Signs 06/17/21 06/17/21 06/17/21 07:48 08:14 08:18 Temperature 98.9 F 98.8 F Pulse Rate 95 H 89 Pulse Rate [ 82 Anterior Throughout] Respiratory 30 H 21 Rate Respiratory 16 Rate [Anterior Throughout] Blood Pressure 125/85 [Right] O2 Sat by Pulse 60 L 100 Oximetry 06/17/21 06/17/21 06/17/21 08:30 08:46 09:00 Temperature Pulse Rate 76 72 71 Pulse Rate [ Anterior Throughout] Respiratory 17 24 22 Rate Respiratory Rate [Anterior Throughout] Blood Pressure [Right] O2 Sat by Pulse 99 97 96 Oximetry 06/17/21 06/17/21 06/17/21 09:16 09:30 09:46 Temperature Pulse Rate 69 65 68 Pulse Rate [ Anterior Throughout] Respiratory 20 22 22 Rate Respiratory Rate [Anterior Throughout] Blood Pressure [Right] O2 Sat by Pulse 94 93 95 Oximetry 06/17/21 06/17/21 06/17/21 10:00 10:16 10:30 Temperature Pulse Rate 68 65 71 Pulse Rate [ Anterior Throughout] Respiratory 23 19 22 Rate Respiratory Rate [Anterior Throughout] Blood Pressure [Right] O2 Sat by Pulse 93 93 96 Oximetry 06/17/21 06/17/21 06/17/21 10:46 11:00 12:10 Temperature Pulse Rate 68 70 Pulse Rate [ Anterior Throughout] Respiratory 19 24 Rate Respiratory Rate [Anterior Throughout] Blood Pressure [Right] O2 Sat by Pulse 99 Oximetry 06/17/21 06/17/21 12:12 12:15 Temperature Pulse Rate 83 Pulse Rate [ Anterior Throughout] Respiratory 18 Rate Respiratory Rate [Anterior Throughout] Blood Pressure [Right] O2 Sat by Pulse 99 98 Oximetry - Reevaluation(s) Reevaluation #1: 06/17/21 08:45 Patient is speaking in full sentences with no signs of distress noted. Reevaluation #2: 06/17/21 09:52 Patient is resting comfortably. Pulse ox at 100% with treatment via mask still in process. Patient today feels much better but I will still reevaluate patient after full dose of treatment. ED Medical Decision Making - Radiology Data [facility] [address] [place] [address] XRay Report Signed Patient: PHIL POTTS MR#: [id number] : 1980 Acct:[id number] Age/Sex: 41 / M ADM Date: 06/17/21 Loc: ED Attending Dr: Ordering Physician: DENISSE PUGH NP Date of Service: 06/17/21 Procedure(s): XR chest 1V ap Accession Number(s): [id number] cc: DENISSE PUGH NP Fluoro Time In Minutes: CHEST 1 VIEW 06/17/2021 7:42 AM INDICATION / CLINICAL INFORMATION: SOB/wheezing. COMPARISON: 06/08/2021 FINDINGS: SUPPORT DEVICES: None. HEART / MEDIASTINUM: No significant abnormality. LUNGS / PLEURA: No significant pulmonary or pleural abnormality. No pneumothorax. ADDITIONAL FINDINGS: No significant additional findings. IMPRESSION: 1. No acute findings. Signer Name: Ilya Wallace DO Signed: 06/17/2021 8:45 AM Workstation Name: [id number] Transcribed By: CONCHIS Dictated By: ILYA WALLACE DO Electronically Authenticated By: ILYA WALLACE DO Signed Date/Time: 06/17/21844 DD/ 4 TD/TT: - Medical Decision Making This is a 41-year-old male that presents with asthma exacerbation. Patient is stable and was examined by me. Chest x-ray has been obtained and dictated by the radiologist within normal limits. Patient is notified of the x-ray report with no questions noted by the patient. Patient did receive breathing treatment and steroids in the ED which patient the symptoms has resolved and subsided. Posttreatment and there is no wheezing upon auscultation. Patient is discharged with albuterol and prednisone. Patient was ambulated by RN with stating sats was above 96% with no SOB noted. Patient was referred to Follow-up with a primary care doctor in 3-5 days or if symptoms worsen and continue return to emergency room as soon as possible. At time of discharge, the patient does not seem toxic or ill in appearance. No acute signs of distress noted. Patient agrees to discharge treatment plan of care. No further questions noted by the patient. This chart is dictated with using [employer] Critical care attestation.: If time is entered above; I have spent that time in minutes in the direct care of this critically ill patient, excluding procedure time. ED Disposition Clinical Impression: Asthma exacerbation Qualifiers: Asthma severity: mild Asthma persistence: intermittent Qualified Code(s): J45.21 - Mild intermittent asthma with (acute) exacerbation Disposition: 01 HOME / SELF CARE / HOMELESS Is pt being admited?: No Does the pt Need Aspirin: No Condition: Stable Instructions: Asthma, Adult Additional Instructions: Follow-up with a primary care doctor in 3-5 days or if symptoms worsen and continue return to emergency room as soon as possible. Prescriptions: Prednisone [predniSONE 10 mg (6-Day Pack, 21 Tabs)] 10 mg PO .TAPER #1 tab.ds.pk Albuterol Mdi (or & Nicu Only) [ProAir HFA Inhaler] 2 puff IH QID PRN #8.5 gram PRN Reason: Shortness Of Breath Referrals: PRIMARY MD DAVIDSON [Primary Care Provider] - 3-5 Days GWENDOLYN AZUL MD [Staff Physician] - 3-5 Days Time of Disposition: 12:05
--- NOTE | 2021-06-17 08:50 | XRay Report ---
CHEST 1 VIEW 06/17/2021 7:42 AM INDICATION / CLINICAL INFORMATION: SOB/wheezing. COMPARISON: 06/08/2021 FINDINGS: SUPPORT DEVICES: None. HEART / MEDIASTINUM: No significant abnormality. LUNGS / PLEURA: No significant pulmonary or pleural abnormality. No pneumothorax. ADDITIONAL FINDINGS: No significant additional findings. IMPRESSION: 1. No acute findings. Signer Name: Ilya Beckford DO Signed: 06/17/2021 8:45 AM Workstation Name: [id number]
== END 2021-06-17 12:38 | disposition home or self-care (01) ==
LOC: ED 07:43
DX: J45.901 Unspecified asthma with (acute) exacerbation (principal); Z88.8 Allergy status to other drugs, medicaments and biological substances
CPT/HCPCS: 71045; 94640; 96374; 99283; J1100; 94644

== ENCOUNTER 2021-11-01 17:14 | Emergency (ER) | payer SELFPAY ==
[2021-11-01] MEDS ORDERED: methylPREDNISolone Sod Succinate 125 MG/2 ML INJ IV ONE (17:31)
[2021-11-01] MEDS ORDERED: IPRATROPIUM/ALBUTEROL SULFATE 3 ML AMPUL.NEB IH ONE (17:32)
[2021-11-01] MEDS ORDERED: ALBUTEROL 2.5 MG/3 ML NEBU IH ONE ×2 (17:32→19:16)
--- NOTE | 2021-11-01 17:33 | Event Note ---
ED Screening Note ED Screening Note: asthmatic with inc rr and inc wob limited exam due to the above This initial assessment/diagnostic orders/clinical plan/treatment(s) is/are subject to change based on patients health status, clinical progression and re- assessment by fellow clinical providers in the ED. Further treatment and workup at subsequent clinical providers discretion. Patient/guardian urged not to elope from the ED as their condition may be serious if not clinically assessed and managed. Initial orders include: RT tx solumedrol
--- NOTE | 2021-11-01 17:44 | Emergency Department Report ---
ED Asthma HPI - General Chief Complaint: Adult Asthma Stated Complaint: BACK PAIN/WHEEZING Time Seen by Provider: 11/01/21 17:31 Source: patient Mode of arrival: Ambulatory Limitations: No Limitations - History of Present Illness Initial Comments: Patient is a 41 years old male with history of asthma. Patient presented to the ER complaining of several days history of shortness of breath and wheezing and dry cough. Patient stated that he is out of his albuterol. Patient denied any fever or chills. No other complaint. MD Complaint: "asthma attack", shortness of breath, wheezing -: days(s) Severity: moderate Associated Symptoms: dry cough - Related Data Current Asthma Therapy: inhaled bronchodilator Previous Rx's Medication Instructions Recorded Last Taken Type ALBUTEROL NEB's [Proventil 0.083% 2.5 mg IH TID PRN #1 box 06/08/21 Unknown Rx NEBS] Albuterol Mdi (or & Nicu Only) 2 puff IH QID PRN #8.5 gram 06/08/21 Unknown Rx [ProAir HFA Inhaler] Benzonatate [Tessalon Perles] 100 mg PO Q8HR PRN #20 capsule 06/08/21 Unknown Rx predniSONE [Deltasone] 20 mg PO BID #8 tab 06/08/21 Unknown Rx Albuterol Mdi (or & Nicu Only) 2 puff IH QID PRN #8.5 gram 06/17/21 Unknown Rx [ProAir HFA Inhaler] Prednisone [predniSONE 10 mg 10 mg PO .TAPER #1 tab.ds.pk 06/17/21 Unknown Rx (6-Day Pack, 21 Tabs)] Albuterol Mdi (or & Nicu Only) 2 puff IH QID PRN #1 inhalation 11/01/21 Unknown Rx [ProAir HFA Inhaler] Prednisone [predniSONE 10 mg 10 mg PO .TAPER #1 tab.ds.pk 11/01/21 Unknown Rx (6-Day Pack, 21 Tabs)] Allergies Allergy/AdvReac Type Severity Reaction Status Date / Time fluticasone Allergy Unknown Verified 06/08/21 13:07 [From Flovent Diskus] ED Review of Systems ROS: Stated complaint: BACK PAIN/WHEEZING Other details as noted in HPI Comment: All other systems reviewed and negative Constitutional: denies: chills, fever Respiratory: cough, shortness of breath, SOB with exertion, SOB at rest, wheezing. denies: orthopnea Cardiovascular: denies: chest pain, palpitations Gastrointestinal: denies: abdominal pain, nausea, vomiting Musculoskeletal: denies: back pain Neurological: denies: headache, weakness, numbness, paresthesias, confusion, abnormal gait ED Past Medical Hx - Past Medical History Previous Medical History?: Yes Hx Congestive Heart Failure: No Hx Seizures: Yes Hx Asthma: Yes - Surgical History Past Surgical History?: No - Social History Smoking Status: Unknown if ever smoked - Medications Home Medications: Home Medications Medication Instructions Recorded Confirmed Last Taken Type ALBUTEROL NEB's [Proventil 0.083% 2.5 mg IH TID PRN #1 box 06/08/21 Unknown Rx NEBS] Albuterol Mdi (or & Nicu Only) 2 puff IH QID PRN #8.5 gram 06/08/21 Unknown Rx [ProAir HFA Inhaler] Benzonatate [Tessalon Perles] 100 mg PO Q8HR PRN #20 capsule 06/08/21 Unknown Rx predniSONE [Deltasone] 20 mg PO BID #8 tab 06/08/21 Unknown Rx Albuterol Mdi (or & Nicu Only) 2 puff IH QID PRN #8.5 gram 06/17/21 Unknown Rx [ProAir HFA Inhaler] Prednisone [predniSONE 10 mg 10 mg PO .TAPER #1 tab.ds.pk 06/17/21 Unknown Rx (6-Day Pack, 21 Tabs)] Albuterol Mdi (or & Nicu Only) 2 puff IH QID PRN #1 inhalation 11/01/21 Unknown Rx [ProAir HFA Inhaler] Prednisone [predniSONE 10 mg 10 mg PO .TAPER #1 tab.ds.pk 11/01/21 Unknown Rx (6-Day Pack, 21 Tabs)] ED Physical Exam - General Limitations: No Limitations General appearance: alert, in no apparent distress - Head Head exam: Present: atraumatic, normocephalic, normal inspection - Eye Eye exam: Present: normal appearance - ENT ENT exam: Present: normal exam, normal orophraynx, mucous membranes moist - Neck Neck exam: Present: normal inspection, full ROM. Absent: tenderness, meningismus - Respiratory Respiratory exam: Present: respiratory distress, wheezes, rhonchi, decreased breath sounds, prolonged expiratory. Absent: rales, accessory muscle use - Cardiovascular Cardiovascular Exam: Present: tachycardia - GI/Abdominal GI/Abdominal exam: Present: soft, normal bowel sounds. Absent: distended, tenderness, guarding, rebound, rigid, organomegaly, mass, bruit, pulsatile mass, hernia - Extremities Exam Extremities exam: Present: normal inspection, full ROM, normal capillary refill. Absent: tenderness - Back Exam Back exam: Present: normal inspection, full ROM. Absent: CVA tenderness (R), CVA tenderness (L) - Neurological Exam Neurological exam: Present: alert, oriented X3, CN II-XII intact, normal gait, reflexes normal - Psychiatric Psychiatric exam: Present: normal mood - Skin Skin exam: Present: warm, intact, normal color ED Course Vital Signs 11/01/21 17:30 Temperature 98.2 F Pulse Rate 102 H Respiratory 16 Rate Blood Pressure 130/79 [Left] O2 Sat by Pulse 92 Oximetry ED Medical Decision Making - Radiology Data Radiology results: report reviewed - Medical Decision Making Patient is a 41 years old male with history of asthma. Patient presented to the ER complaining of several days history of shortness of breath and wheezing and dry cough. Patient stated that he is out of his albuterol. Patient denied any fever or chills. No other complaint. Patient received albuterol 10 mg, Atrovent 1 mg Solu-Medrol 125 mg and magnesium sulfate 2 g. Patient stated that he is feeling much better. Patient given prescription for albuterol and prednisone and advised to follow-up with his primary care physician in the next 2 to 3 days and to return to the ER if you develop any new symptoms. Critical care attestation.: If time is entered above; I have spent that time in minutes in the direct care of this critically ill patient, excluding procedure time. ED Disposition Clinical Impression: Acute asthma exacerbation Disposition: 01 HOME / SELF CARE / HOMELESS Is pt being admited?: No Condition: Stable Instructions: Asthma, Adult Prescriptions: Prednisone [predniSONE 10 mg (6-Day Pack, 21 Tabs)] 10 mg PO .TAPER #1 tab.ds.pk Albuterol Mdi (or & Nicu Only) [ProAir HFA Inhaler] 2 puff IH QID PRN #1 inhalation PRN Reason: Shortness Of Breath Referrals: PRIMARY CARE, [Primary Care Provider] - 3-5 Days
[2021-11-01] MEDS ORDERED: MAGNESIUM SULFATE 2 GM/50 ML BAG IV ONE (19:00)
[2021-11-01 20:43] VITALS: BP 107/64
--- NOTE | 2021-11-01 21:22 | XRay Report ---
CHEST 1 VIEW 11/01/2021 8:09 PM INDICATION / CLINICAL INFORMATION: sob. COMPARISON: One view of the chest from 10/31/2021. FINDINGS: SUPPORT DEVICES: None. HEART / MEDIASTINUM: No significant abnormality. LUNGS / PLEURA: No significant pulmonary abnormality. No significant pleural effusion. No pneumothora x. ADDITIONAL FINDINGS: No significant additional findings. IMPRESSION: 1. No acute abnormality of the chest. Signer Name: Mao Hernandez MD Signed: 11/01/2021 9:17 PM Workstation Name: [id number]
== END 2021-11-01 20:37 | disposition home or self-care (01) ==
LOC: ED 17:14
DX: J45.901 Unspecified asthma with (acute) exacerbation (principal); Z88.8 Allergy status to other drugs, medicaments and biological substances
CPT/HCPCS: 71045; 94640; 96365; 96375; 99283; J2930; J3475